=== PATIENT | female | born 1995 | race Caucasian/White ===

== ENCOUNTER 2017-06-29 06:16 | Emergency (ER) | payer SELFPAY ==
[~2017-06-29] VITALS: Ht 157.4 cm; Wt 52.2 kg
[~2017-06-29 06:16] MED LIST: AMOXICILLIN500 M2 PO; ANAPROX DS550 MG PO; ATARAX25 MG PO; BACTRIM DS 8001 TA1 PO; BACTRIM DS 8001 TAB PO; CLARITIN10 MG PO; FLONASE ALLERG9.9 ML NAS; KEFLEX500 MG PO; MACROBID100 M1 PO; MEDROL DOSEPAK4 MG PO; MOTRIN100 MG/5 M PO; MOTRIN600 MG PO; MOTRIN800 MG PO; NKHM; PEN-VEE K500 MG PO; PREDNICOT20 MG PO; PREDNISONE10 MG PO; PRILOSEC20 MG PO; PROVERA5 MG PO; PYRIDIATE200 MG PO; ROBITUSSIN DM 105 ML PO; TRAMADOL HCL50 MG PO; ULTRAM50 MG PO; ZOFRAN4 MG PO
[2017-06-29 06:44] LABS: BASO # 0.1 10*3/uL (0.0-0.1); BASO % 0.6 % (0.0-1.0); EOS # 0.2 10*3/uL (0.0-0.4); HEMATOCRIT 38.7 % (37.0-47.0); LYMPH # 2.2 10*3/uL (1.3-4.4); LYMPH % 27.4 % (27.0-41.0); MEAN CELL VOLUME 96.8 fl (81.0-99.0); MEAN CORPUSCULAR HGB 32.5 pg (27.0-31.0); MEAN CORPUSCULAR HGB CONC 33.6 g/dl (33.0-37.0); MEAN PLATELET VOLUME 9.7 fl (9.6-12.3); MONO # 0.5 10*3/uL (0.1-1.0); MONO % 6.3 % (3.0-9.0); NEUT # 5.2 10*3/uL (2.3-7.9); NEUT % 63.5 % (47.0-73.0); PLATELET COUNT AUTOMATED 275 10*3/uL (130-400); RED CELL DISTRI WIDTH 12.2 % (0-14.5); WHITE BLOOD COUNT 8.2 10*3/uL (4.8-10.8)
[2017-06-29 06:59] LABS: ALKALINE PHOSPHATASE 40 U/L (45-117); BUN 6 mg/dl (7-24); CHLORIDE 113 mmol/L (98-107); CREATININE 0.64 mg/dL (0.55-1.02); LIPASE 134 U/L (73-393); POTASSIUM 3.8 mmol/L (3.5-5.1); SGOT/AST 49 IU/L (3-35); SGPT/ALT 94 U/L (12-78); SODIUM 144 mmol/L (136-145); TOTAL PROTEIN 7.5 gm/dL (6.4-8.2)
[2017-06-29 07:00] LABS: B-hCG (QUALITATIVE) NEGATIVE (NEGATIVE)
[2017-06-29 07:01] LABS: TROPONIN I < 0.015 ng/ml (<0.045)
[2017-06-29 07:18] VITALS: BP 126/73
[2017-06-29 07:29] LABS: BILIRUBIN NEGATIVE (NEGATIVE); BLOOD NEGATIVE (NEGATIVE); CLARITY SL CLOUDY (CLEAR); COLOR YELLOW (YELLOW); GLUCOSE NEGATIVE (NEGATIVE); KETONE NEGATIVE (NEGATIVE); LEUKO ESTERASE NEGATIVE (NEGATIVE); NITRITE NEGATIVE (NEGATIVE); PH 6.5 (5.0-9.0); SPECIFIC GRAVITY <= 1.005 (1.005-1.030); UROBILINOGEN 0.2 E.U./dl (0.2-1.0)
[2017-06-29 07:35] LABS: URINE AMPHETAMINES < 1000 (1000ng/ml); URINE BARBITURATES < 200 (200ng/ml); URINE BENZODIAZEPINES < 200 (200ng/ml); URINE CANNABINOIDS (THC) > 50 (50ng/ml); URINE COCAINE < 300 (300ng/ml); URINE METHADONE < 300 (300ng/ml); URINE OPIATES < 300 (300ng/ml)
[2017-06-29 07:36] LABS: BACTERIA 2+; EPITHELIAL CELLS 16-20; RBC 0-2 rbc/hpf (0-2)
[2017-06-29 07:39] LABS: URINE PHENCYCLIDINE < 25 (25ng/ml)
== END 2017-06-29 08:05 | disposition home or self-care (01) ==
LOC: ED 06:16
PROVIDERS: Emergency Medicine Emergency Medical Services
DX: S02.2XXA Fracture of nasal bones, initial encounter for closed fracture (principal); S61.011A Laceration without foreign body of right thumb without damage to nail, initial encounter; S50.12XA Contusion of left forearm, initial encounter; S00.83XA Contusion of other part of head, initial encounter; F10.129 Alcohol abuse with intoxication, unspecified; K02.9 Dental caries, unspecified; F17.200 Nicotine dependence, unspecified, uncomplicated; Z91.040 Latex allergy status; Z88.4 Allergy status to anesthetic agent; Z79.899 Other long term (current) drug therapy; Y90.9 Presence of alcohol in blood, level not specified; Y04.0XXA Assault by unarmed brawl or fight, initial encounter; Y93.89 Activity, other specified; Y92.89 Other specified places as the place of occurrence of the external cause; Y99.9 Unspecified external cause status

== ENCOUNTER 2017-12-27 12:11 | Emergency (ER) | payer SELFPAY ==
[~2017-12-27] VITALS: Ht 157.4 cm; Wt 48.5 kg
[2017-12-27 12:15] VITALS: BP 125/57
[2017-12-27 12:45] LABS: BILIRUBIN NEGATIVE (NEGATIVE); BLOOD NEGATIVE (NEGATIVE); CLARITY CLEAR (CLEAR); COLOR STRAW (YELLOW); GLUCOSE NEGATIVE (NEGATIVE); KETONE NEGATIVE (NEGATIVE); LEUKO ESTERASE NEGATIVE (NEGATIVE); NITRITE NEGATIVE (NEGATIVE); PH 5.5 (5.0-9.0); SPECIFIC GRAVITY <= 1.005 (1.005-1.030); UROBILINOGEN 0.2 E.U./dl (0.2-1.0)
[2017-12-27 12:53] LABS: URINE AMPHETAMINES < 1000 (1000ng/ml); URINE BARBITURATES < 200 (200ng/ml); URINE BENZODIAZEPINES > 200 (200ng/ml); URINE CANNABINOIDS (THC) > 50 (50ng/ml); URINE COCAINE < 300 (300ng/ml); URINE METHADONE < 300 (300ng/ml); URINE OPIATES < 300 (300ng/ml)
[2017-12-27 12:54] LABS: URINE PHENCYCLIDINE < 25 (25ng/ml)
[2017-12-27 13:09] LABS: BACTERIA 2+; CALCIUM OXALATE CRYSTALS TRACE
[2017-12-28 08:07] LABS: HEPATITIS B SURFACE AG Negative (Negative)
[2017-12-30 14:28] LABS: HEPATITIS C VIRUS ANTIBODY >11.0 s/co (0.0-0.9)
[2017-12-30 21:07] LABS: GONOCOCCUS BY NAA Negative (Negative)
== END 2017-12-27 13:52 | disposition home or self-care (01) ==
LOC: ED 12:11
PROVIDERS: Emergency Medicine
DX: Z20.2 Contact with and (suspected) exposure to infections with a predominantly sexual mode of transmission (principal); F17.200 Nicotine dependence, unspecified, uncomplicated; Z91.040 Latex allergy status; Z88.4 Allergy status to anesthetic agent

== ENCOUNTER 2018-02-15 02:38 | Inpatient (IN) | payer SELFPAY ==
[~2018-02-15] VITALS: Ht 160 cm; Wt 49.6 kg
[2018-02-15] VITALS (10 sets, daily range): BP systolic 112–131; BP diastolic 69–90
--- NOTE | ~2018-02-15 | EKG ---
[place], [place] ELECTROCARDIOGRAM REPORT NAME: ANDI BUCIO UNIT #: [id number] ROOM: [facility] DOCTOR: RICHARDSONANY DRAFT REPORT BIRTHDATE: [birth year] [facility] Test Date: 2018-02-15 Test Time: 02:50:48 Pat Name: ANDI BUCIO Department: Room: [facility] Gender: F Personalized Living Assistant: Carlota Jones : 1995 Requested By: LAYLA COLINDRES DNP Order Number: [id number] Reading MD: Edwin Velez MD Measurements Intervals [place] Rate: 127 P: 69 [place]: 94 QRS: 38 QRSD: 76 T: 59 QT: 278 QTc: 405 Interpretive Statements Sinus tachycardia Left atrial enlargement Nonspecific ST-T changes, possibly rate related Borderline repolarization abnormality Electronically Signed On 02-15-2018 13:54:12 PDT by Edwin Velez MD CM:EKGRPT:ELECTROCARDIOGRAM REPORT [id number] LAYLA COLINDRES DNP EPIPHANY DRAFT REPORT LAYLA COLINDRES DNP
--- NOTE | ~2018-02-15 | PR ---
[place], [place] PROGRESS NOTE NAME: ANDI BUCIO UNIT #: [id number] ROOM: [facility] DOCTOR: DANY, PHD [place] BIRTHDATE: [birth year] DOS: 02/17/2018 SUBJECTIVE: The patient was awake, alert and oriented. Eye contact and social skills were fair. Mood was overwhelmingly depressed and affect was tearful. She denied current suicidal ideation, plan and intent. She denied homicidal ideation. Speech was soft. Expressive and receptive language appeared within normal limits. Conversationally thought process was linear and goal directed. Thought content was negative for hallucinations and delusions. Insight and judgment appeared fair. PLAN: Discussed events leading up to the patient's hospitalization and her interpretation of them. Utilize CBT and supportive therapy intervention. The patient appeared to benefit she will be discharging to [facility] for inpatient psychiatric treatment. Clara Waite, PhD CM:PNTRANS [id number] PHD GRICELDA WAITE 02/18/18 0119 interface
[2018-02-15 02:53] LABS: BASO # 0.1 10*3/uL (0.0-0.1); BASO % 0.6 % (0.0-1.0); EOS # 0.1 10*3/uL (0.0-0.4); EOS % 1.3 % (1.0-4.0); HEMATOCRIT 38.9 % (37.0-47.0); LYMPH % 40.8 % (27.0-41.0); MEAN CELL VOLUME 97.3 fl (81.0-99.0); MEAN CORPUSCULAR HGB 32.5 pg (27.0-31.0); MEAN CORPUSCULAR HGB CONC 33.4 g/dl (33.0-37.0); MEAN PLATELET VOLUME 9.3 fl (9.6-12.3); MONO # 0.5 10*3/uL (0.1-1.0); MONO % 5.5 % (3.0-9.0); NEUT % 51.6 % (47.0-73.0); PLATELET COUNT AUTOMATED 367 10*3/uL (130-400); RED CELL DISTRI WIDTH 12.5 % (0-14.5); WHITE BLOOD COUNT 9.7 10*3/uL (4.8-10.8)
[2018-02-15 03:10] LABS: ALBUMIN 4.3 gm/dl (3.1-4.5); ALKALINE PHOSPHATASE 41 U/L (45-117); BUN 8 mg/dl (7-24); CHLORIDE 112 mmol/L (98-107); CREATININE 0.91 mg/dL (0.55-1.02); SGOT/AST 30 IU/L (3-35); SGPT/ALT 55 U/L (12-78); SODIUM 144 mmol/L (136-145); TOTAL PROTEIN 7.8 gm/dL (6.4-8.2)
[2018-02-15 03:16] LABS: ACETAMINOPHEN (TYLENOL) < 5.0 ug/ml (10-30); TROPONIN I < 0.015 ng/ml (<0.045)
[2018-02-15 04:11] LABS: BILIRUBIN NEGATIVE (NEGATIVE); BLOOD NEGATIVE (NEGATIVE); CLARITY CLEAR (CLEAR); COLOR YELLOW (YELLOW); GLUCOSE NEGATIVE (NEGATIVE); KETONE NEGATIVE (NEGATIVE); LEUKO ESTERASE NEGATIVE (NEGATIVE); NITRITE NEGATIVE (NEGATIVE); SPECIFIC GRAVITY 1.015 (1.005-1.030); UROBILINOGEN 0.2 E.U./dl (0.2-1.0)
[2018-02-15 04:21] LABS: EPITHELIAL CELLS 0-2; URINE AMPHETAMINES < 1000 (1000ng/ml); URINE BARBITURATES < 200 (200ng/ml); URINE BENZODIAZEPINES < 200 (200ng/ml); URINE CANNABINOIDS (THC) > 50 (50ng/ml); URINE COCAINE > 300 (300ng/ml); URINE METHADONE < 300 (300ng/ml); URINE OPIATES < 300 (300ng/ml)
[2018-02-15 04:22] LABS: BACTERIA 1+
[2018-02-15 04:23] LABS: URINE PHENCYCLIDINE < 25 (25ng/ml)
[2018-02-15 04:34] LABS: BASO # 0.1 10*3/uL (0.0-0.1); BASO % 0.5 % (0.0-1.0); EOS # 0.1 10*3/uL (0.0-0.4); EOS % 0.8 % (1.0-4.0); HEMATOCRIT 37.7 % (37.0-47.0); HEMOGLOBIN 12.7 g/dl (12.0-16.0); LYMPH # 1.9 10*3/uL (1.3-4.4); LYMPH % 18.4 % (27.0-41.0); MEAN CELL VOLUME 97.7 fl (81.0-99.0); MEAN CORPUSCULAR HGB 32.9 pg (27.0-31.0); MEAN CORPUSCULAR HGB CONC 33.7 g/dl (33.0-37.0); MEAN PLATELET VOLUME 9.3 fl (9.6-12.3); MONO # 0.4 10*3/uL (0.1-1.0); MONO % 4.3 % (3.0-9.0); NEUT # 7.7 10*3/uL (2.3-7.9); NEUT % 75.6 % (47.0-73.0); PLATELET COUNT AUTOMATED 318 10*3/uL (130-400); RED BLOOD COUNT 3.86 10*6/uL (4.10-5.10); RED CELL DISTRI WIDTH 12.6 % (0-14.5); WHITE BLOOD COUNT 10.1 10*3/uL (4.8-10.8)
[2018-02-15 04:52] LABS: ALBUMIN 4.3 gm/dl (3.1-4.5); ALKALINE PHOSPHATASE 38 U/L (45-117); BUN 8 mg/dl (7-24); CHLORIDE 113 mmol/L (98-107); CHOLESTEROL 130 mg/dL (<200); CPK 291 U/L (26-192); CREATININE 0.71 mg/dL (0.55-1.02); HDL CHOLESTEROL 58 mg/dl (40-60); LDL CHOLESTEROL 58 mg/dL (9-159); PHOSPHOROUS 2.4 mg/dL (2.5-4.9); POTASSIUM 2.9 mmol/L (3.5-5.1); SGOT/AST 31 IU/L (3-35); SGPT/ALT 54 U/L (12-78); SODIUM 144 mmol/L (136-145); TOTAL PROTEIN 7.5 gm/dL (6.4-8.2); TRIGLYCERIDES 68 mg/dl (<150); VLDL CHOLESTEROL 14 mg/dL (6-40)
[2018-02-15 04:57] LABS: FREE T4 1.32 ng/dl (0.76-1.46)
[2018-02-15 05:03] LABS: ACETAMINOPHEN (TYLENOL) < 5.0 ug/ml (10-30); TROPONIN I < 0.015 ng/ml (<0.045)
[2018-02-15 06:09] LABS: ACT PARTIAL THROMBO TIME 21.9 SECONDS (20.8-31.5)
[2018-02-15 07:35] LABS: VITAMIN D, 25-HYDROXY 24.1 ng/mL (30-100)
[2018-02-15 08:53] LABS: ACETAMINOPHEN (TYLENOL) < 5.0 ug/ml (10-30); TROPONIN I < 0.015 ng/ml (<0.045)
[2018-02-16] VITALS: BP 116/73
[2018-02-16 04:03] VITALS: BP 118/76
[2018-02-16 06:47] LABS: ALBUMIN 3.7 gm/dl (3.1-4.5); BUN 10 mg/dl (7-24); CHLORIDE 110 mmol/L (98-107); CREATININE 0.66 mg/dL (0.55-1.02); PHOSPHOROUS 2.7 mg/dL (2.5-4.9); POTASSIUM 3.7 mmol/L (3.5-5.1); SGOT/AST 64 IU/L (3-35); SGPT/ALT 48 U/L (12-78); SODIUM 138 mmol/L (136-145); TOTAL PROTEIN 6.5 gm/dL (6.4-8.2)
[2018-02-16 06:49] LABS: ALKALINE PHOSPHATASE 34 U/L (45-117)
[2018-02-16 06:50] LABS: BASO % 0.6 % (0.0-1.0); EOS # 0.2 10*3/uL (0.0-0.4); EOS % 2.2 % (1.0-4.0); HEMATOCRIT 40.8 % (37.0-47.0); HEMOGLOBIN 13.4 g/dl (12.0-16.0); LYMPH # 3.1 10*3/uL (1.3-4.4); LYMPH % 42.8 % (27.0-41.0); MEAN CELL VOLUME 98.8 fl (81.0-99.0); MEAN CORPUSCULAR HGB 32.4 pg (27.0-31.0); MEAN CORPUSCULAR HGB CONC 32.8 g/dl (33.0-37.0); MEAN PLATELET VOLUME 10.8 fl (9.6-12.3); MONO # 0.4 10*3/uL (0.1-1.0); MONO % 5.8 % (3.0-9.0); NEUT # 3.5 10*3/uL (2.3-7.9); NEUT % 48.5 % (47.0-73.0); RED BLOOD COUNT 4.13 10*6/uL (4.10-5.10); RED CELL DISTRI WIDTH 12.4 % (0-14.5); WHITE BLOOD COUNT 7.3 10*3/uL (4.8-10.8)
[2018-02-16 06:53] LABS: PLATELET COUNT AUTOMATED 209 10*3/uL (130-400)
[2018-02-16 08:00] VITALS: BP 119/88
[2018-02-16 12:00] VITALS: BP 97/57
[2018-02-16 20:00] VITALS: BP 96/51
[2018-02-17] VITALS: BP 105/52
[2018-02-17 04:00] VITALS: BP 110/62
[2018-02-17 08:00] VITALS: BP 131/65
== END 2018-02-17 18:05 | disposition home health service (06) | DRG 917 ==
LOC: ED 02:38 → EDHOLD 03:53 → ICCU 03:53
PROVIDERS: Internal Medicine Nephrology; Nurse Practitioner Family
DX: T45.0X2A Poisoning by antiallergic and antiemetic drugs, intentional self-harm, initial encounter (principal); G92 Toxic encephalopathy; R65.10 Systemic inflammatory response syndrome (SIRS) of non-infectious origin without acute organ dysfunction; F10.921 Alcohol use, unspecified with intoxication delirium; F33.9 Major depressive disorder, recurrent, unspecified; D72.810 Lymphocytopenia; D72.818 Other decreased white blood cell count; T50.992A Poisoning by other drugs, medicaments and biological substances, intentional self-harm, initial encounter; E87.6 Hypokalemia; E87.8 Other disorders of electrolyte and fluid balance, not elsewhere classified; R73.9 Hyperglycemia, unspecified; E83.39 Other disorders of phosphorus metabolism; E83.51 Hypocalcemia; F14.10 Cocaine abuse, uncomplicated; F12.10 Cannabis abuse, uncomplicated; Z72.0 Tobacco use; Z82.5 Family history of asthma and other chronic lower respiratory diseases; Z82.49 Family history of ischemic heart disease and other diseases of the circulatory system; Z80.9 Family history of malignant neoplasm, unspecified; Z88.4 Allergy status to anesthetic agent; Z91.040 Latex allergy status; Y92.89 Other specified places as the place of occurrence of the external cause

== ENCOUNTER 2018-05-02 19:56 | Emergency (ER) | payer OTHER ==
[~2018-05-02] VITALS: Ht 157.4 cm; Wt 54.4 kg
[2018-05-02 19:59] VITALS: BP 136/68
[2018-05-02 20:49] LABS: BASO % 0.5 % (0.0-1.0); EOS # 0.1 10*3/uL (0.0-0.4); EOS % 1.1 % (1.0-4.0); HEMATOCRIT 42.1 % (37.0-47.0); HEMOGLOBIN 13.9 g/dl (12.0-16.0); LYMPH # 3.1 10*3/uL (1.3-4.4); LYMPH % 37.4 % (27.0-41.0); MEAN CELL VOLUME 97.2 fl (81.0-99.0); MEAN CORPUSCULAR HGB 32.1 pg (27.0-31.0); MEAN PLATELET VOLUME 9.3 fl (9.6-12.3); MONO # 0.5 10*3/uL (0.1-1.0); MONO % 6.5 % (3.0-9.0); NEUT # 4.5 10*3/uL (2.3-7.9); NEUT % 54.3 % (47.0-73.0); PLATELET COUNT AUTOMATED 353 10*3/uL (130-400); RED BLOOD COUNT 4.33 10*6/uL (4.10-5.10); RED CELL DISTRI WIDTH 12.3 % (0-14.5); WHITE BLOOD COUNT 8.2 10*3/uL (4.8-10.8)
[2018-05-02 21:05] LABS: ALKALINE PHOSPHATASE 46 U/L (45-117); BUN 13 mg/dl (7-24); CHLORIDE 107 mmol/L (98-107); CREATININE 1.08 mg/dL (0.55-1.02); LIPASE 97 U/L (73-393); POTASSIUM 3.2 mmol/L (3.5-5.1); SGOT/AST 28 IU/L (3-35); SGPT/ALT 53 U/L (12-78); SODIUM 138 mmol/L (136-145); TOTAL PROTEIN 7.9 gm/dL (6.4-8.2)
[2018-05-02 21:05] LABS: BILIRUBIN NEGATIVE (NEGATIVE); BLOOD NEGATIVE (NEGATIVE); CLARITY CLEAR (CLEAR); COLOR YELLOW (YELLOW); GLUCOSE NEGATIVE (NEGATIVE); KETONE NEGATIVE (NEGATIVE); LEUKO ESTERASE NEGATIVE (NEGATIVE); NITRITE NEGATIVE (NEGATIVE); PH 5.5 (5.0-9.0); SPECIFIC GRAVITY >= 1.030 (1.005-1.030); UROBILINOGEN 0.2 E.U./dl (0.2-1.0)
[2018-05-02 21:26] LABS: BACTERIA 1+; EPITHELIAL CELLS TNTC
[2018-05-02 21:27] LABS: MUCOUS 1+; RBC 0-2 rbc/hpf (0-2)
[2018-05-02 22:27] LABS: URINE AMPHETAMINES < 1000 (1000ng/ml); URINE BARBITURATES < 200 (200ng/ml); URINE BENZODIAZEPINES > 200 (200ng/ml); URINE CANNABINOIDS (THC) > 50 (50ng/ml); URINE COCAINE < 300 (300ng/ml); URINE METHADONE < 300 (300ng/ml); URINE OPIATES < 300 (300ng/ml)
[2018-05-02 22:28] LABS: URINE PHENCYCLIDINE < 25 (25ng/ml)
[2018-05-02] MEDS ORDERED: ONDANSETRON4 MG SL (22:33)
== END 2018-05-02 22:37 | disposition home or self-care (01) ==
LOC: ED 19:56
PROVIDERS: Emergency Medicine; Student in an Organized Health Care Education/Training Program
DX: R11.2 Nausea with vomiting, unspecified (principal); R68.83 Chills (without fever); R10.9 Unspecified abdominal pain; R35.0 Frequency of micturition; Z87.440 Personal history of urinary (tract) infections; Z91.040 Latex allergy status; Z88.4 Allergy status to anesthetic agent

== ENCOUNTER → 2021-01-17 | Outpatient (CLI) | payer MEDICAID ==
[~2021-01-17] MED LIST changes: +ONDANSETRON4 MG SL
== END | disposition home or self-care (01) ==
LOC: US 14:00
PROVIDERS: ATTEND Nurse Practitioner Women's Health
DX: Z34.03 Encounter for supervision of normal first pregnancy, third trimester (principal); Z3A.29 29 weeks gestation of pregnancy

== ENCOUNTER → 2021-08-23 | Outpatient (CLI) | payer OTHER | END | disposition home or self-care (01) | LOC: CARD 07:30 | PROVIDERS: ATTEND Internal Medicine Cardiovascular Disease | DX: I35.8 Other nonrheumatic aortic valve disorders (principal); I42.8 Other cardiomyopathies ==

== ENCOUNTER 2022-01-13 14:06 | Emergency (ER) | payer OTHER ==
[~2022-01-13] VITALS: Ht 160 cm; Wt 52.6 kg
[2022-01-13 14:18] VITALS: BP 94/49
[2022-01-13] MEDS ORDERED: HYDROCODONE-AC1 EAC1 PO (15:02)
[2022-01-13] MEDS ORDERED: AMOX-CLAV 875-1 EACH PO (15:02)
== END 2022-01-13 15:11 | disposition home or self-care (01) ==
LOC: ED 14:06
DX: K08.89 Other specified disorders of teeth and supporting structures (principal); Z91.040 Latex allergy status

== ENCOUNTER → 2022-02-06 | Outpatient (CLI) | payer OTHER ==
[~2022-02-06] MED LIST changes: +AMOX-CLAV 875-1 EACH PO; +HYDROCODONE-AC1 EAC1 PO
[2022-02-06 15:46] LABS: CHOLESTEROL 85 mg/dL (<200); LDL CHOLESTEROL 33 mg/dL (9-159); TRIGLYCERIDES 77 mg/dl (<150)
== END | disposition home or self-care (01) ==
LOC: LAB 15:07
PROVIDERS: ATTEND Internal Medicine Cardiovascular Disease
DX: I42.8 Other cardiomyopathies (principal)

== ENCOUNTER 2022-03-17 12:23 | Emergency (ER) | payer OTHER ==
[~2022-03-17] VITALS: Wt 51.3 kg
[2022-03-17 12:30] VITALS: BP 128/76
[2022-03-17] MEDS ORDERED: TYLENOL325 M1 PO (12:57)
[2022-03-17] MEDS ORDERED: NAPROXEN250 MG PO (12:57)
== END 2022-03-17 13:20 | disposition home or self-care (01) ==
LOC: ED 12:23
DX: K02.9 Dental caries, unspecified (principal); Z91.040 Latex allergy status; F17.200 Nicotine dependence, unspecified, uncomplicated

== ENCOUNTER 2022-08-22 19:57 | Emergency (ER) | payer OTHER ==
[~2022-08-22] VITALS: Ht 157.4 cm; Wt 49.9 kg
[~2022-08-22 19:57] MED LIST changes: +NAPROXEN250 MG PO; +TYLENOL325 M1 PO
[2022-08-22 20:13] VITALS: BP 142/98
[2022-08-22 20:45] LABS: BASO # 0.1 10*3/uL (0.0-0.1); BASO % 0.7 % (0.0-1.0); EOS # 0.2 10*3/uL (0.0-0.4); EOS % 2.2 % (1.0-4.0); HEMATOCRIT 45.4 % (37.0-47.0); LYMPH % 33.2 % (27.0-41.0); MEAN CELL VOLUME 95.2 fl (81.0-99.0); MEAN CORPUSCULAR HGB CONC 32.6 g/dl (33.0-37.0); MEAN PLATELET VOLUME 9.5 fl (9.6-12.3); MONO # 0.6 10*3/uL (0.1-1.0); MONO % 6.3 % (3.0-9.0); NEUT # 5.3 10*3/uL (2.3-7.9); NEUT % 57.4 % (47.0-73.0); PLATELET COUNT AUTOMATED 346 10*3/uL (130-400); RED BLOOD COUNT 4.77 10*6/uL (4.10-5.10); RED CELL DISTRI WIDTH 12.7 % (0-14.5); WHITE BLOOD COUNT 9.2 10*3/uL (4.8-10.8)
[2022-08-22] MEDS ORDERED: METOPROLOL SUCC25 M2 PO (21:02)
[2022-08-22] MEDS ORDERED: TRAZODONE50 MG PO (21:02)
[2022-08-22 21:03] LABS: ALKALINE PHOSPHATASE 46 U/L (46-116); BUN 14 mg/dl (9-23); CHLORIDE 105 mmol/L (98-107); POTASSIUM 4.2 mmol/L (3.4-5.1); SGPT/ALT 61 U/L (10-49); TOTAL PROTEIN 8.2 gm/dL (6.0-8.0)
== END 2022-08-22 21:32 | disposition home or self-care (01) ==
LOC: ED 19:57
PROVIDERS: Internal Medicine
DX: H53.8 Other visual disturbances (principal); F32.A Depression, unspecified; Z91.040 Latex allergy status; Z98.890 Other specified postprocedural states; Z72.0 Tobacco use; F12.10 Cannabis abuse, uncomplicated; F14.10 Cocaine abuse, uncomplicated